=== PATIENT | female | born 1940 | race Caucasian/White ===

== ENCOUNTER → 2025-01-19 | Outpatient (REF) | payer MEDICARE, SELFPAY ==
[2025-01-19 09:15] LABS: Bacteria 0 SEEN /hpf (None Seen); Mucous, Urine 0 SEEN /hpf (<or=2+); Red Blood Cells-Urine 0 SEEN /hpf (0-5)
[2025-01-19 10:09] LABS: Phosphorus 5.2 mg/dL (2.7-4.5); Potassium 3.8 mmol/L (3.3-5.1)
[2025-01-19 10:11] LABS: Color, Urine Straw (Yellow); Glucose, Dipstick 100 mg/dl (Normal); Ketone-Dipstick Negative (Negative); Leukocyte Esterase-Dipstick 100 /ul (Negative); Nitrite-Dipstick Negative (Negative); Occult Blood-Urine Negative /ul (Negative); Protein-Dipstick 30 mg/dl (Negative); Urine Bilirubin Dipstick Negative (Negative); Urine Clarity Sl. Cloudy (Clear); Urine Urobilinogen Normal (Normal)
[2025-01-19 10:30] LABS: Squamous Epithelial Cells - UA 0-5 SEEN /hpf (5-10); White Blood Cells 0-5 SEEN /hpf (0-5)
== END ==
LOC: OLS.SANC 05:00
DX: D64.9 Anemia, unspecified (principal); N39.0 Urinary tract infection, site not specified; I12.9 Hypertensive chronic kidney disease with stage 1 through stage 4 chronic kidney disease, or unspecified chronic kidney disease; N18.5 Chronic kidney disease, stage 5; E87.5 Hyperkalemia; N17.9 Acute kidney failure, unspecified
CPT/HCPCS: 36415; 81001; 84100; 84132; 87086; 87088

== ENCOUNTER → 2025-02-02 | Outpatient (REF) | payer MEDICARE, SELFPAY ==
[2025-02-03 08:57] LABS: Bacteria 0 SEEN /hpf (None Seen); Mucous, Urine 0 SEEN /hpf (<or=2+); Red Blood Cells-Urine 0 SEEN /hpf (0-5)
[2025-02-04 16:39] LABS: Color, Urine Straw (Yellow); Glucose, Dipstick 250 mg/dl (Normal); Ketone-Dipstick Negative (Negative); Leukocyte Esterase-Dipstick Negative /ul (Negative); Nitrite-Dipstick Negative (Negative); Occult Blood-Urine Negative /ul (Negative); Protein-Dipstick 30 mg/dl (Negative); Urine Bilirubin Dipstick Negative (Negative); Urine Clarity Clear (Clear); Urine Urobilinogen Normal (Normal)
[2025-02-04 17:58] LABS: Squamous Epithelial Cells - UA 0-5 SEEN /hpf (5-10); White Blood Cells 0-5 SEEN /hpf (0-5)
== END ==
LOC: OLS.SANC 21:20
DX: E11.22 Type 2 diabetes mellitus with diabetic chronic kidney disease (principal); I12.9 Hypertensive chronic kidney disease with stage 1 through stage 4 chronic kidney disease, or unspecified chronic kidney disease; N18.5 Chronic kidney disease, stage 5; N17.9 Acute kidney failure, unspecified; R41.82 Altered mental status, unspecified
CPT/HCPCS: 81001; 87086; 87088

== ENCOUNTER → 2025-02-09 | Outpatient (REF) | payer MEDICARE, SELFPAY ==
[2025-02-09 09:40] LABS: Hemoglobin A1c 4.4 % (<=5.6)
== END ==
LOC: OLS.SANC 05:00
DX: E11.9 Type 2 diabetes mellitus without complications (principal)
CPT/HCPCS: 36415; 83036; 84443

== ENCOUNTER → 2025-02-14 | Outpatient (REF) | payer MEDICARE, SELFPAY ==
[2025-02-14 09:25] LABS: Hematocrit 31.8 % (37-47); Mean Corp Hgb Conc 34.6 g/dL (32-36); Mean Corpuscular Hgb 32.4 pg (27.0-32.0); Mean Corpuscular Volume 93.8 fL (81-99); Mean Platelet Vol. 9.5 fl (6.2-12.0); Platelet Count 256 K/mm3 (150-450); RBC Distribution Width CV 13.5 % (11.6-14.6); RBC Distribution Width SD 46.8 fl (35.1-43.9); Red Blood Count 3.39 M/mm3 (4.2-5.4); White Blood Count 6.1 K/mm3 (4.4-11.0)
[2025-02-14 10:02] LABS: Anion Gap 20 (5-15); BUN 76 mg/dL (4-19); BUN/Creat Ratio 10.3 RATIO (10-20); Calcium,Total 9.7 mg/dL (7.6-11.0); Carbon Dioxide 23.1 mmol/L (21.0-32.0); Chloride 94 mmol/L (98-108); EST Glomerular Filtration Rate 5 (>60); Glucose 94 mg/dL (70-99); Sodium Level 137 mmol/L (133-145)
== END ==
LOC: OLS.SANC 05:00
PROVIDERS: Visit Provider Internal Medicine
DX: D64.9 Anemia, unspecified (principal); E11.9 Type 2 diabetes mellitus without complications; I10 Essential (primary) hypertension
CPT/HCPCS: 36415; 80048; 85027

== ENCOUNTER → 2025-06-07 05:00 | Outpatient (REF) | payer MEDICARE, SELFPAY ==
[2025-06-07 09:16] LABS: Hematocrit 27.1 % (37-47); Hemoglobin 9.1 g/dL (12.0-15.0); Mean Corp Hgb Conc 33.6 g/dL (32-36); Mean Corpuscular Volume 98.9 fL (81-99); Mean Platelet Vol. 9.3 fl (6.2-12.0); Platelet Count 195 K/mm3 (150-450); RBC Distribution Width CV 12.5 % (11.6-14.6); RBC Distribution Width SD 44.7 fl (35.1-43.9); Red Blood Count 2.74 M/mm3 (4.2-5.4); White Blood Count 4.7 K/mm3 (4.4-11.0)
[2025-06-07 09:56] LABS: Anion Gap 15 (5-15); BUN 61 mg/dL (4-19); BUN/Creat Ratio 9.9 RATIO (10-20); Calcium,Total 9.4 mg/dL (7.6-11.0); Carbon Dioxide 27.8 mmol/L (21.0-32.0); Chloride 95 mmol/L (98-108); Glucose 112 mg/dL (70-99); Potassium 4.5 mmol/L (3.3-5.1); Vitamin D,25 Hydroxy 52.5 ng/mL (30-100)
== END ==
LOC: OLS.SANC 05:00
DX: D64.9 Anemia, unspecified (principal)
CPT/HCPCS: 36415; 80048; 82306; 84439; 84443; 85027

== ENCOUNTER → 2025-08-24 | Outpatient (REF) | payer MEDICARE, SELFPAY ==
--- OUTSIDE RECORDS SUMMARY | 2025-08-24 04:41 | XMS RPT_ITS | CCD ---
Author Organization [facility] Care Team Providers Care Funeral Attendant Name Role Phone Gabby VILLAFANA, Mariela Attending Provider Unava ilable Katsaros OLS, Donovan Attending Provider Unavailab le Mukkamalla OLS, Mariela Attending Unavail able Mukkamalla OLS, Mariela Attending Unavail able Mukkamalla OLS, Mariela Attending Unavail able Mukkamalla OLS, Mariela Attending Unavail able Katsaros OLS, Donovan Attending Unavailable Problems Active Problems Problem Classification Problem Date Documented Da te Episodic/Chronic Chronic kidney disease (1 source) Chronic kidney disease, stage 5; Translations: [Chronic kidney disease, stage 5] Onset: 03-04-2025 Chronic Deficiency and other anemia (2 sources) Anemia, unspecified; Translations: [Anemia, unspecified] Onset: 03-04-2025 Episodic Diabetes mellitus without complication (1 source) Type 2 diabetes mellitus without complications; Translations: [Type 2 diabetes mellitus without complications] Onset: 03-11-2025 Chronic Essential hypertension (1 source) Essential (primary) hypertension; Translations: [Essential (primary) hypertension] Onset: 03-04-2025 Chronic Past or Other Problems Problem Classification Problem Date Documented Da te Episodic/Chronic Acute and unspecified renal failure (1 source) Acute kidney failure, unspecified; Translations: [Acute kidney failure, unspecified] Onset: 03-04-2025 Episodic Fluid and electrolyte disorders (1 source) Hyperkalemia; Translations: [Hyperkalemia] Onset: 02-14-2025 Episodic Residual codes; unclassified (1 source) Altered mental status, unspecified; Translations: [Altered mental status, unspecified] Onset: 03-04-2025 Episodic Urinary tract infections (1 source) Urinary tract infection, site not specified; Translations: [Urinary tract infection, site not specified] Onset: 02-14-2025 Episodic Results Test Name Value Interpretation Reference Range Facility CBC-Complete Blood Cnt No Di ffon 08-04-2025 HCT Normal 37-47 [facility] Comment on above: Order Comment: 214.1 Result Comment: [facility] Performed By: #### L 500.4050, L100.0500 #### [facility] [address] [place], [address] HGB Normal 12.0-15.0 [facility] Comment on above: Order Comment: 214.1 Result Comment: [facility] Performed By: #### L 500.4050, L100.0500 #### [facility] [address] [place], [address] MCH Normal 27.0-32.0 [facility] Comment on above: Order Comment: 214.1 Result Comment: [facility] Performed By: #### L 500.4050, L100.0500 #### [facility] [address] [place], [address] MCHC Normal 32-36 [facility] Comment on above: Order Comment: 214.1 Result Comment: [facility] Performed By: #### L 500.4050, L100.0500 #### [facility] [address] [place], [address] MCV Normal 81-99 [facility] Comment on above: Order Comment: 214.1 Result Comment: [facility] Performed By: #### L 500.4050, L100.0500 #### [facility] [address] [place], [address] PLT Normal 150-450 [facility] Comment on above: Order Comment: 214.1 Result Comment: [facility] Performed By: #### L 500.4050, L100.0500 #### [facility] [address] [place], [address] RBC Normal 4.2-5.4 [facility] Comment on above: Order Comment: 214.1 Result Comment: [facility] Performed By: #### L 500.4050, L100.0500 #### [facility] [address] [place], [address] RDW CV Normal 11.6-14.6 [facility] Comment on above: Order Comment: 214.1 Result Comment: [facility] Performed By: #### L 500.4050, L100.0500 #### [facility] [address] [place], [address] RDW SD Normal 35.1-43.9 [facility] Comment on above: Order Comment: 214.1 Result Comment: [facility] Performed By: #### L 500.4050, L100.0500 #### [facility] [address] [place], [address] WBC Normal 4.4-11.0 [facility] Comment on above: Order Comment: 214.1 Result Comment: [facility] Performed By: #### L 500.4050, L100.0500 #### [facility] [address] [place], [address] Comprehensive Metabolic Prof ilon 08-04-2025 ALB Normal 3.4-4.8 [facility] Comment on above: Order Comment: 214.1 Result Comment: [facility] Performed By: #### L 500.4050, L100.0500 #### [facility] [address] [place], [address] ALK PHOS Normal 35-104 [facility] Comment on above: Order Comment: 214.1 Result Comment: [facility] Performed By: #### L 500.4050, L100.0500 #### [facility] [address] [place], [address] ALT Normal <=34 [facility] Comment on above: Order Comment: 214.1 Result Comment: [facility] Performed By: #### L 500.4050, L100.0500 #### [facility] [address] [place], [address] AST Normal <=31 [facility] Comment on above: Order Comment: 214.1 Result Comment: [facility] Performed By: #### L 500.4050, L100.0500 #### [facility] [address] [place], [address] BUN Normal 4-19 [facility] Comment on above: Order Comment: 214.1 Result Comment: [facility] Performed By: #### L 500.4050, L100.0500 #### [facility] [address] [place], [address] BUN/CRE Normal 10-20 [facility] Comment on above: Order Comment: 214.1 Result Comment: [facility] Performed By: #### L 500.4050, L100.0500 #### [facility] [address] [place], [address] Calcium Normal 7.6-11.0 [facility] Comment on above: Order Comment: 214.1 Result Comment: [facility] Performed By: #### L 500.4050, L100.0500 #### [facility] [address] [place], [address] CL Normal 98-108 [facility] Comment on above: Order Comment: 214.1 Result Comment: [facility] Performed By: #### L 500.4050, L100.0500 #### [facility] [address] [place], [address] CO2 Normal 21.0-32.0 [facility] Comment on above: Order Comment: 214.1 Result Comment: [facility] Performed By: #### L 500.4050, L100.0500 #### [facility] [address] [place], [address] CREAT,SERUM Normal 0.70-1.20 [facility] Comment on above: Order Comment: 214.1 Result Comment: [facility] Performed By: #### L 500.4050, L100.0500 #### [facility] [address] [place], [address] eGFR Normal >60 [facility] Comment on above: Order Comment: 214.1 Result Comment: [facility] Performed By: #### L 500.4050, L100.0500 #### [facility] [address] [place], [address] GAP Normal 5-15 [facility] Comment on above: Order Comment: 214.1 Result Comment: [facility] Performed By: #### L 500.4050, L100.0500 #### [facility] [address] [place], [address] GLU Normal 70-99 [facility] Comment on above: Order Comment: 214.1 Result Comment: [facility] Performed By: #### L 500.4050, L100.0500 #### [facility] [address] [place], [address] Potassium Normal 3.3-5.1 [facility] Comment on above: Order Comment: 214.1 Result Comment: [facility] Performed By: #### L 500.4050, L100.0500 #### [facility] [address] [place], [address] T BILI Normal 0.00-1.30 [facility] Comment on above: Order Comment: 214.1 Result Comment: [facility] Performed By: #### L 500.4050, L100.0500 #### [facility] [address] [place], [address] T PROT Normal 5.9-8.4 [facility] Comment on above: Order Comment: 214.1 Result Comment: [facility] Performed By: #### L 500.4050, L100.0500 #### [facility] [address] [place], [address] Comprehensive Metabolic Profil Normal 133-145 [facility] Comment on above: Order Comment: 214.1 Result Comment: [facility] Performed By: #### L 500.4050, L100.0500 #### [facility] [address] [place], [address] Basic Metabolic Profile (BMP )on 06-07-2025 BUN/CRE 9.9 RATIO Low 10-20 [facility] Comment on above: Order Comment: 214.1 Performed By: #### L 400.0001, L501.2300, M100.2200, L501.5600 #### [facility] [address] [place], [address] Calcium [Mass/Vol] 9.4 mg/dL Normal 7.6-11.0 [facility] Comment on above: Order Comment: 214.1 Performed By: #### L 400.0001, L501.2300, M100.2200, L501.5600 #### [facility] [address] [place], [address] Chloride [Moles/Vol] 95 mmol/L Low 98-108 [facility] Comment on above: Order Comment: 214.1 Performed By: #### L 400.0001, L501.2300, M100.2200, L501.5600 #### [facility] [address] [place], [address] CO2 [Moles/Vol] 27.8 mmol/L Normal 21.0-32.0 [facility] Comment on above: Order Comment: 214.1 Performed By: #### L 400.0001, L501.2300, M100.2200, L501.5600 #### [facility] [address] [place], [address] Creatinine [Mass/Vol] 6.16 mg/dL High 0.70-1.20 [facility] Comment on above: Order Comment: 214.1 Performed By: #### L 400.0001, L501.2300, M100.2200, L501.5600 #### [facility] [address] [place], [address] GAP 15 Normal 5-15 [facility] Comment on above: Order Comment: 214.1 Performed By: #### L 400.0001, L501.2300, M100.2200, L501.5600 #### [facility] [address] [place], [address] GFR/1.73 sq M.predicted among non-blacks MDRD (S/P/Bld) [Vol rate/Area] 6 mL/min/{1.73_m2} Low >60 [facility] Comment on above: Order Comment: 214.1 Result Comment: mL/m in/1.73m2 CKD-EPI Creatinine Equation (2020) Performed By: #### L 400.0001, L501.2300, M100.2200, L501.5600 #### [facility] [address] [place], [address] Glucose [Mass/Vol] 112 mg/dL High 70-99 [facility] Comment on above: Order Comment: 214.1 Performed By: #### L 400.0001, L501.2300, M100.2200, L501.5600 #### [facility] [address] [place], [address] Potassium [Moles/Vol] 4.5 mmol/L Normal 3.3-5.1 [facility] Comment on above: Order Comment: 214.1 Performed By: #### L 400.0001, L501.2300, M100.2200, L501.5600 #### [facility] [address] [place], [address] Sodium [Moles/Vol] 138 mmol/L Normal 133-145 [facility] Comment on above: Order Comment: 214.1 Performed By: #### L 400.0001, L501.2300, M100.2200, L501.5600 #### [facility] [address] [place], [address] Urea nitrogen [Mass/Vol] 61 mg/dL High 4-19 [facility] Comment on above: Order Comment: 214.1 Performed By: #### L 400.0001, L501.2300, M100.2200, L501.5600 #### [facility] [address] [place], [address] CBC-Complete Blood Cnt No Di ffon 06-07-2025 Erythrocyte distribution width (RBC) [Ratio] 12.5 % Normal 11.6-14.6 [facility] Comment on above: Order Comment: 214.1 Performed By: #### L 400.0001, L501.2300, M100.2200, L501.5600 #### [facility] [address] [place], [address] Hematocrit (Bld) [Volume fraction] 27.1 % Low 37-47 [facility] Comment on above: Order Comment: 214.1 Performed By: #### L 400.0001, L501.2300, M100.2200, L501.5600 #### [facility] [address] [place], [address] Hemoglobin (Bld) [Mass/Vol] 9.1 g/dL Low 12.0-15.0 [facility] Comment on above: Order Comment: 214.1 Performed By: #### L 400.0001, L501.2300, M100.2200, L501.5600 #### [facility] [address] [place], [address] MCH (RBC) [Entitic mass] 33.2 pg High 27.0-32.0 [facility] Comment on above: Order Comment: 214.1 Performed By: #### L 400.0001, L501.2300, M100.2200, L501.5600 #### [facility] [address] [place], [address] MCHC (RBC) [Mass/Vol] 33.6 g/dL Normal 32-36 [facility] Comment on above: Order Comment: 214.1 Performed By: #### L 400.0001, L501.2300, M100.2200, L501.5600 #### [facility] [address] [place], [address] MCV (RBC) [Entitic vol] 98.9 fL Normal 81-99 [facility] Comment on above: Order Comment: 214.1 Performed By: #### L 400.0001, L501.2300, M100.2200, L501.5600 #### [facility] [address] [place], [address] Platelet mean volume (Bld) [Entitic vol] 9.3 fL Normal 6.2-12.0 [facility] Comment on above: Order Comment: 214.1 Performed By: #### L 400.0001, L501.2300, M100.2200, L501.5600 #### [facility] [address] [place], [address] Platelets (Bld) [#/Vol] 195 10*3/uL Normal 150-450 [facility] Comment on above: Order Comment: 214.1 Performed By: #### L 400.0001, L501.2300, M100.2200, L501.5600 #### [facility] [address] [place], [address] RBC (Bld) [#/Vol] 2.74 10*6/uL Low 4.2-5.4 [facility] Comment on above: Order Comment: 214.1 Performed By: #### L 400.0001, L501.2300, M100.2200, L501.5600 #### [facility] [address] [place], [address] RDW SD 44.7 fl High 35.1-43.9 [facility] Comment on above: Order Comment: 214.1 Performed By: #### L 400.0001, L501.2300, M100.2200, L501.5600 #### [facility] [address] [place], [address] WBC (Bld) [#/Vol] 4.7 10*3/uL Normal 4.4-11.0 [facility] Comment on above: Order Comment: 214.1 Performed By: #### L 400.0001, L501.2300, M100.2200, L501.5600 #### [facility] [address] [place], [address] T4 Free Directon 06-07-2025 T4 FREE DIRECT 0.80 ng/dL Normal 0.76-1.46 [facility] Comment on above: Order Comment: 214.1 Performed By: #### L 400.0001, L501.2300, M100.2200, L501.5600 #### [facility] [address] [place], [address] Thyroid Stim Hormone (TSH)on 06-07-2025 TSH 2.560 uIU/mL Normal 0.300-4.200 [facility] Comment on above: Order Comment: 214.1 Performed By: #### L 400.0001, L501.2300, M100.2200, L501.5600 #### [facility] [address] [place], [address] Vitamin D,25 Hydroxyon 06-07 Vitamin D 25-OH 52.5 ng/mL Normal 30-100 [facility] Comment on above: Order Comment: 214.1 Result Comment: Steph min D Status Deficiency: <20 ng/mL (50nmol/L) Insufficiency: 20-30 ng/mL (50-75 nmol/L) Sufficiency: 30-100 ng/mL (75-250 nmol/L) Toxicity: >100 ng/mL (>250 nmol/L) Performed By: #### L 400.0001, L501.2300, M100.2200, L501.5600 #### [facility] [address] [place], [address] Anion gap in Serum or Plasma Ordered By: Donovan Mckeon on 02-14-2025 Anion gap [Moles/Vol] 20 mmol/L High 5- [facility] BUN/creatinine ratioOrdered By: Donovan Mckeon on 02-14-2025 Urea nitrogen/Creatinine [Mass ratio] 10.3 mg/mg 08-08 [facility] Basic Metabolic Profile (BMP )on 02-14-2025 BUN/CRE 10.3 RATIO Normal 08-08 [facility] Comment on above: Order Comment: Performed By: #### L 500.2500, L100.0500 #### [facility] [address] [place], [address] Calcium [Mass/Vol] 9.7 mg/dL Normal 7.6-11.0 [facility] Comment on above: Order Comment: Performed By: #### L 500.2500, L100.0500 #### [facility] [address] [place], [address] Chloride [Moles/Vol] 94 mmol/L Low 98-108 [facility] Comment on above: Order Comment: - Performed By: #### L 500.2500, L100.0500 #### [facility] [address] [place], [address] CO2 [Moles/Vol] 23.1 mmol/L Normal 21.0-32.0 [facility] Comment on above: Order Comment: - Performed By: #### L 500.2500, L100.0500 #### [facility] [address] [place], [address] Creatinine [Mass/Vol] 7.40 mg/dL High 0.70-1.20 [facility] Comment on above: Order Comment: - Performed By: #### L 500.2500, L100.0500 #### [facility] [address] [place], [address] GAP 20 High 5-15 [facility] Comment on above: Order Comment: - Performed By: #### L 500.2500, L100.0500 #### [facility] [address] [place], [address] GFR/1.73 sq M.predicted among non-blacks MDRD (S/P/Bld) [Vol rate/Area] 5 mL/min/{1.73_m2} Low >60 [facility] Comment on above: Order Comment: Result Comment: mL/m in/1.73m2 CKD-EPI Creatinine Equation (2020) Performed By: #### L 500.2500, L100.0500 #### [facility] [address] [place], [address] Glucose [Mass/Vol] 94 mg/dL Normal 70-99 [facility] Comment on above: Order Comment: - Performed By: #### L 500.2500, L100.0500 #### [facility] [address] [place], [address] Potassium [Moles/Vol] 4.0 mmol/L Normal 3.3-5.1 [facility] Comment on above: Order Comment: - Performed By: #### L 500.2500, L100.0500 #### [facility] [address] [place], [address] Sodium [Moles/Vol] 137 mmol/L Normal 133-145 [facility] Comment on above: Order Comment: 214-1 Performed By: #### L 500.2500, L100.0500 #### [facility] [address] [place], [address] Urea nitrogen [Mass/Vol] 76 mg/dL High 4-19 [facility] Comment on above: Order Comment: 214-1 Performed By: #### L 500.2500, L100.0500 #### [facility] [address] [place], [address] CBC-Complete Blood Cnt No Di ffon 02-14-2025 Erythrocyte distribution width (RBC) [Ratio] 13.5 % Normal 11.6-14.6 [facility] Comment on above: Order Comment: 214-1 Performed By: #### L 500.2500, L100.0500 #### [facility] [address] [place], [address] Hematocrit (Bld) [Volume fraction] 31.8 % Low 37-47 [facility] Comment on above: Order Comment: 214-1 Performed By: #### L 500.2500, L100.0500 #### [facility] [address] [place], [address] Hemoglobin (Bld) [Mass/Vol] 11.0 g/dL Low 12.0-15.0 [facility] Comment on above: Order Comment: 214-1 Performed By: #### L 500.2500, L100.0500 #### [facility] [address] [place], [address] MCH (RBC) [Entitic mass] 32.4 pg High 27.0-32.0 [facility] Comment on above: Order Comment: 214-1 Performed By: #### L 500.2500, L100.0500 #### [facility] [address] [place], [address] MCHC (RBC) [Mass/Vol] 34.6 g/dL Normal 32-36 [facility] Comment on above: Order Comment: 214-1 Performed By: #### L 500.2500, L100.0500 #### [facility] [address] [place], [address] MCV (RBC) [Entitic vol] 93.8 fL Normal 81-99 [facility] Comment on above: Order Comment: 214-1 Performed By: #### L 500.2500, L100.0500 #### [facility] [address] [place], [address] Platelet mean volume (Bld) [Entitic vol] 9.5 fL Normal 6.2-12.0 [facility] Comment on above: Order Comment: 214-1 Performed By: #### L 500.2500, L100.0500 #### [facility] [address] [place], [address] Platelets (Bld) [#/Vol] 256 10*3/uL Normal 150-450 [facility] Comment on above: Order Comment: 214-1 Performed By: #### L 500.2500, L100.0500 #### [facility] [address] [place], [address] RBC (Bld) [#/Vol] 3.39 10*6/uL Low 4.2-5.4 [facility] Comment on above: Order Comment: 214-1 Performed By: #### L 500.2500, L100.0500 #### [facility] [address] [place], [address] RDW SD 46.8 fl High 35.1-43.9 [facility] Comment on above: Order Comment: 214-1 Performed By: #### L 500.2500, L100.0500 #### [facility] [address] [place], [address] WBC (Bld) [#/Vol] 6.1 10*3/uL Normal 4.4-11.0 [facility] Comment on above: Order Comment: 214-1 Performed By: #### L 500.2500, L100.0500 #### [facility] [place], [address] Carbon dioxide, total [Moles /volume] in Central venous bloodOrdered By: Donovan Mckeon on 02-14-2025 CO2 [Moles/Vol] 23.1 mmol/L 21.0-32.0 [facility] Chloride assayOrdered By: Ashok Maria on 02-14-2025 Chloride [Moles/Vol] 94 mmol/L Low 98-108 [facility] Erythrocyte distribution wid th (RBC) [Ratio]Ordered By: Donovan Mckeon on 02-14-2025 Erythrocyte distribution width (RBC) [Entitic vol] 46.8 fL High 35.1-43.9 [facility] Erythrocyte distribution wid th ratioOrdered By: Donovan Mckeon on 02-14-2025 Erythrocyte distribution width (RBC) [Ratio] 13.5 % 11.6-14.6 [facility] Erythrocyte distribution wid th standard deviationOrdered By: Donovan Mckeon on 02-14-2025 Erythrocyte distribution width (RBC) [Ratio] 46.8 fl High 35.1-43.9 [facility] GFR/1.73 sq M.predicted monica g non-blacks MDRD (S/P/Bld) [Vol rate/Area]Ordered By: Donovan Mckeon on 02-14-2025 Estimated GFR (MDRD) Non-Af Amer 5 Low >60 [facility] Comment on above: mL/min/1.73m2 CKD-EP I Creatinine Equation (2020) Glomerular filtration rate ( GFR) estimation/1.73 sq m using serum, plasma, or whole bOrdered By: Donovan Mckeon on 02-14-2025 GFR/1.73 sq M.predicted among non-blacks MDRD (S/P/Bld) [Vol rate/Area] 5 mL/min/{1.73_m2} Low >60 [facility] Comment on above: mL/min/1.73m2 CKD-EP I Creatinine Equation (2020) Hematocrit Auto (Bld) [Volum e fraction]Ordered By: Donovan Mckeon on 02-14-2025 Hematocrit (Bld) [Volume fraction] 31.8 % Low 37-47 [facility] Hemoglobin measurementOrdere d By: Donovan Mckeon on 02-14-2025 Hemoglobin (Bld) [Mass/Vol] 11.0 g/dL Low 12.0-15.0 [facility] MCV (mean corpuscular volume ) determinationOrdered By: Donovan Mckeon on 02-14-2025 MCV (RBC) [Entitic vol] 93.8 fL 81-99 [facility] Mean corpuscular hemoglobin (MCH) determinationOrdered By: Donovan Mckeon on 02-14-2025 MCH (RBC) [Entitic mass] 32.4 pg High 27.0-32.0 [facility] Mean corpuscular hemoglobin concentration (MCHC) determinationOrdered By: Donovan Mckeon on 02-14-2025 MCHC (RBC) [Mass/Vol] 34.6 g/dL 32-36 [facility] Mean platelet volume determi nationOrdered By: Donovan Mckeon on 02-14-2025 Platelet mean volume (Bld) [Entitic vol] 9.5 fL 6.2-12.0 [facility] Platelet countOrdered By: Ashok Maria on 02-14-2025 Platelets (Bld) [#/Vol] 256 10*3/uL 150-450 [facility] Potassium (Unsp spec) [Mass/ Vol]Ordered By: Donovan Mckeon on 02-14-2025 Potassium [Moles/Vol] 4.0 mmol/L 3.3-5.1 [facility] Potassium measurement (mass/ volume)Ordered By: Donovan Mckeon on 02-14-2025 Potassium (Unsp spec) [Mass/Vol] 4.0 mmol/L 3.3-5.1 [facility] RBC Auto (Bld) [#/Vol]Ordere d By: Donovan Mckeon on 02-14-2025 RBC (Bld) [#/Vol] 3.39 10*6/uL Low 4.2-5.4 [facility] Serum creatinine measurement (mass/volume)Ordered By: Donovan Mckeon on 02-14-2025 Creatinine [Mass/Vol] 7.40 mg/dL High 0.70-1.20 [facility] Serum glucose measurement (m ass/volume)Ordered By: Donovan Mckeon on 02-14-2025 Glucose [Mass/Vol] 94 mg/dL 70-99 [facility] Serum or plasma calcium nelson urement (mass/volume)Ordered By: Donovan Mckeon on 02-14-2025 Calcium [Mass/Vol] 9.7 mg/dL 7.6-11.0 [facility] Serum or plasma urea nitroge n measurement (mass/volume)Ordered By: Donovan Mckeon on 02-14-2025 Urea nitrogen [Mass/Vol] 76 mg/dL High 4-19 [facility] Sodium levelOrdered By: Gilles Mckeon on 02-14-2025 Sodium [Moles/Vol] 137 mmol/L 133-145 [facility] White blood cell (WBC) count Ordered By: Donovan Mckeon on 02-14-2025 WBC (Bld) [#/Vol] 6.1 10*3/uL 4.4-11.0 [facility] Hemoglobin A1con 02-09-2025 HbA1c (Bld) [Mass fraction] 4.4 % Normal <=5.6 [facility] Comment on above: Order Comment: 214.1 Result Comment: Norm al < 5.7 % Prediabetic 5.7 - 6.4 % Diabetic >or= 6.5 % Please note range changes. Performed By: #### L 400.0001, L501.2300, M100.2200, L501.5600 #### [facility] [address] [place], [place] [address], [address] Hemoglobin A1c percentageOrd ered By: Mariela Pierre on 02-09-2025 HbA1c (Bld) [Mass fraction] 4.4 % <5.7 [facility] Comment on above: Normal < 5.7 % Predi abetic 5.7 - 6.4 % Diabetic >or= 6.5 % Please note range changes. TSH DL <= 0.005 mIU/L QnOrde red By: Mariela Pierre on 02-09-2025 Thyroid Stimulating Hormone (TSH) 2.710 uIU/mL 0.300-4.200 [facility] TSH Qn 2.710 uIU/mL 0.300-4.200 [facility] Thyroid Stim Hormone (TSH)on 02-09-2025 TSH 2.710 uIU/mL Normal 0.300-4.200 [facility] Comment on above: Order Comment: 214.1 Performed By: #### L 400.0001, L501.2300, M100.2200, L501.5600 #### [facility] [address] [place], [address] Urine Cultureon 02-05-2025 URC Mixed Gram Pos Gram Neg Org [place] Count 80,000-100,000 [facility] Mixed contaminants. Submit a new specimen if indicated. Normal [facility] Comment on above: Performed By: #### M 100.2200, L400.0001 #### [facility] [address] [place], [address] Urinalysis, Completeon 02-04 EPI,SQUAMOUS 0-5 SEEN Normal 5-10 [facility] Comment on above: Order Comment: CLEAN CATCH Performed By: #### M 100.2200, L400.0001 #### [facility] [address] [place], [address] WBC 0-5 SEEN Normal 0-5 [facility] Comment on above: Order Comment: CLEAN CATCH Performed By: #### M 100.2200, L400.0001 #### [facility] [address] [place], [address] Urinalysis, Completeon 02-03 BACTERIA 0 SEEN Normal None Seen [facility] Comment on above: Order Comment: CLEAN CATCH Performed By: #### M 100.2200, L400.0001 #### [facility] [address] [place], [address] Mucus Ql (Urine sed) 0 SEEN Normal [facility] Comment on above: Order Comment: CLEAN CATCH Performed By: #### M 100.2200, L400.0001 #### [facility] [address] [place], [place], [address] RBC 0 SEEN Normal 0-5 [facility] Comment on above: Order Comment: CLEAN CATCH Performed By: #### M 100.2200, L400.0001 #### [facility] [address] [place], [address] Bilirubin Test strip Ql (U)O rdered By: Mariela Pierre on 02-02-2025 Bilirubin Ql (U) Negative Negative [facility] Epithelial cells.squamous LM Ql (Urine sed)Ordered By: Mariela Pierre on 02-02-2025 Epithelial cells.squamous LM.HPF (Urine sed) [#/Area] 0 /[HPF] 5-10 [facility] Glucose Ql (U)Ordered By: Jadon Pierre on 02-02-2025 Glucose (U) [Mass/Vol] 250 mg/dL High Normal [facility] Ketones Test strip Ql (U)Ord ered By: Mariela Pierre on 02-02-2025 Ketones Ql (U) Negative Negative [facility] Microscopic analysis of urin e for red blood cells (RBC)Ordered By: Mariela Pierre on 02-02-2025 Microscopic analysis of urine for red blood cells (RBC) 0 SEEN /hpf 0-5 [facility] Urine RBC 0 SEEN /hpf 0-5 [facility] Mucus LM Ql (Urine sed)Order ed By: Mariela Pierre on 02-02-2025 Mucus Ql (Urine sed) 0 SEEN /hpf [facility] Nitrite Test strip Ql (U)Ord ered By: Mariela Pierre on 02-02-2025 Nitrite Ql (U) Negative Negative [facility] Protein Test strip Ql (U)Ord ered By: Mariela Pierre on 02-02-2025 Protein Ql (U) 30 mg/dl High Negative [facility] Squamous epithelial cells de tection in urine sediment by light microscopyOrdered By: Mariela Pierre on 02-02-2025 Epithelial cells.squamous LM Ql (Urine sed) 0-5 SEEN /hpf 5-10 [facility] Urine blood detectionOrdered By: Mariela Pierre on 02-02-2025 Urine Occult Blood Negative Negative [facility] Urine clarityOrdered By: Stacey Pierre on 02-02-2025 Clarity (U) Clear Clear [facility] Urine color determinationOrd ered By: Mairela Pierre on 02-02-2025 Color (U) Straw Yellow [facility] Urine cultureOrdered By: Stacey Pierre on 02-02-2025 Bacteria identified Cx Nom (U) Mixed Gram Pos & Gram Neg Org Abnormal [facility] Urine glucose detectionOrder ed By: Mariela Pierre on 02-02-2025 Glucose Ql (U) 250 mg/dl High Normal [facility] Urine leukocyte esterase det ection by dipstickOrdered By: Mariela Pierre on 02-02-2025 Leukocyte esterase Test strip Ql (U) Negative Negative [facility] Urine pHOrdered By: Mariela Pierre on 02-02-2025 pH (U) 8.0 [pH] 5.0 - 8.0 [facility] Urine sediment bacteria coun t by microscopy (number/high power field)Ordered By: Mariela Pierre on 02-02-2025 Bacteria LM.HPF (Urine sed) [#/Area] 0 /[HPF] None Seen [facility] Urine specific gravity measu rementOrdered By: Mariela Pierre on 02-02-2025 Specific gravity (U) [Rel density] 1.010 1.002-1.030 [facility] Urine urobilinogen measureme ntOrdered By: Mariela Pierre on 02-02-2025 Urobilinogen Ql (U) Normal mg/dl Normal [facility] Urobilinogen Ql (U)Ordered B y: Mariela Pierre on 02-02-2025 Urine Urobilinogen Normal mg/dl Normal [facility] White blood cell countOrdere d By: Mariela Pierre on 02-02-2025 Urine WBC 0-5 SEEN /hpf 0-5 [facility] White blood cell count 0-5 SEEN /hpf 0-5 [facility] Urine Cultureon 01-21-2025 URC Below infection level. Mixed Gram Positive Organisms [place] Count 1000-10,000 [facility] Mixed contaminants. Submit a new specimen if indicated. Normal [facility] Comment on above: Performed By: #### L 400.0001, L501.2300, M100.2200, L501.5600 #### [facility] [address] [place], [address] Phosphoruson 01-19-2025 Phosphate [Mass/Vol] 5.2 mg/dL High 2.7-4.5 [facility] Comment on above: Order Comment: 214.1 Performed By: #### L 400.0001, L501.2300, M100.2200, L501.5600 #### [facility] [address] [place], [address] Potassiumon 01-19-2025 Potassium [Moles/Vol] 3.8 mmol/L Normal 3.3-5.1 [facility] Comment on above: Order Comment: 214.1 Performed By: #### L 400.0001, L501.2300, M100.2200, L501.5600 #### [facility] [address] [place], [address] Potassium (Unsp spec) [Mass/ Vol]Ordered By: Mariela Pierre on 01-19-2025 Potassium [Moles/Vol] 3.8 mmol/L 3.3-5.1 [facility] Potassium measurement (mass/ volume)Ordered By: [facility] on 01-19-2025 Potassium (Unsp spec) [Mass/Vol] 3.8 mmol/L 3.3-5.1 [facility] Serum phosphorus measurement Ordered By: Mariela Pierre on 01-19-2025 Phosphorus Level 5.2 mg/dL High 2.7-4.5 [facility] Urinalysis, Completeon 01-19 EPI,SQUAMOUS 0-5 SEEN Normal 5-10 [facility] Comment on above: Order Comment: CLEAN CATCH Performed By: #### L 400.0001, L501.2300, M100.2200, L501.5600 #### [facility] [address] [place], [address] WBC 0-5 SEEN Normal 0-5 [facility] Comment on above: Order Comment: CLEAN CATCH Performed By: #### L 400.0001, L501.2300, M100.2200, L501.5600 #### [facility] [address] [place], [address] BACTERIA 0 SEEN Normal None Seen [facility] Comment on above: Order Comment: CLEAN CATCH Performed By: #### L 400.0001, L501.2300, M100.2200, L501.5600 #### [facility] [address] [place], [address] Mucus Ql (Urine sed) 0 SEEN Normal [facility] Comment on above: Order Comment: CLEAN CATCH Performed By: #### L 400.0001, L501.2300, M100.2200, L501.5600 #### [facility] [address] [place], [address] RBC 0 SEEN Normal 0-5 [facility] Comment on above: Order Comment: CLEAN CATCH Performed By: #### L 400.0001, L501.2300, M100.2200, L501.5600 #### [facility] [address] [place], [address] Bilirubin Test strip Ql (U)O rdered By: Mariela Pierre on 01-18-2025 Bilirubin Ql (U) Negative Negative [facility] Epithelial cells.squamous LM Ql (Urine sed)Ordered By: Mariela Pierre on 01-18-2025 Epithelial cells.squamous LM.HPF (Urine sed) [#/Area] 0 /[HPF] 5-10 [facility] Glucose Ql (U)Ordered By: Jadon Pierre on 01-18-2025 Glucose (U) [Mass/Vol] 100 mg/dL High Normal [facility] Ketones Test strip Ql (U)Ord ered By: Mariela Pierre on 01-18-2025 Ketones Ql (U) Negative Negative [facility] Microscopic analysis of urin e for red blood cells (RBC)Ordered By: Mariela Pierre on 01-18-2025 Microscopic analysis of urine for red blood cells (RBC) 0 SEEN /hpf 0-5 [facility] Urine RBC 0 SEEN /hpf 0-5 [facility] Mucus LM Ql (Urine sed)Order ed By: Mariela Pierre on 01-18-2025 Mucus Ql (Urine sed) 0 SEEN /hpf [facility] Nitrite Test strip Ql (U)Ord ered By: Mariela Pierre on 01-18-2025 Nitrite Ql (U) Negative Negative [facility] Protein Test strip Ql (U)Ord ered By: Mariela Pierre on 01-18-2025 Protein Ql (U) 30 mg/dl High Negative [facility] Squamous epithelial cells de tection in urine sediment by light microscopyOrdered By: Mariela Pierre on 01-18-2025 Epithelial cells.squamous LM Ql (Urine sed) 0-5 SEEN /hpf 5-10 [facility] Urine blood detectionOrdered By: Mariela Pierre on 01-18-2025 Urine Occult Blood Negative Negative [facility] Urine clarityOrdered By: Stacey Pierre on 01-18-2025 Clarity (U) Sl. Cloudy Clear [facility] Urine color determinationOrd ered By: Mariela Pierre on 01-18-2025 Color (U) Straw Yellow [facility] Urine cultureOrdered By: Stacey Pierre on 01-18-2025 Bacteria identified Cx Nom (U) Positive Abnormal [facility] Urine glucose detectionOrder ed By: Mariela Pierre on 01-18-2025 Glucose Ql (U) 100 mg/dl High Normal [facility] Urine leukocyte esterase det ection by dipstickOrdered By: Mariela Pierre on 01-18-2025 Leukocyte esterase Test strip Ql (U) 100 /ul High Negative [facility] Urine pHOrdered By: Mariela Pierre on 01-18-2025 pH (U) 8.0 [pH] 5.0 - 8.0 [facility] Urine sediment bacteria coun t by microscopy (number/high power field)Ordered By: Mariela Pierre on 01-18-2025 Bacteria LM.HPF (Urine sed) [#/Area] 0 /[HPF] None Seen [facility] Urine specific gravity measu rementOrdered By: Mariela Pierre on 01-18-2025 Specific gravity (U) [Rel density] 1.010 1.002-1.030 [facility] Urine urobilinogen measureme ntOrdered By: Mariela Pierre on 01-18-2025 Urobilinogen Ql (U) Normal mg/dl Normal [facility] Urobilinogen Ql (U)Ordered B y: Mariela Pierre on 01-18-2025 Urine Urobilinogen Normal mg/dl Normal [facility] White blood cell countOrdere d By: Mariela Pierre on 01-18-2025 Urine WBC 0-5 SEEN /hpf 0-5 [facility] White blood cell count 0-5 SEEN /hpf 0-5 [facility] Encounters Encounter Date Encounter Type Care Provider Facility Start: 06-07-2025 ambulatory Mariela SCHMITT Facility:[facility] Start: 02-14-2025 End: 02-14-2025 ambulatory Mariela Pierre MD [facility] Work Phone: Start: 02-14-2025 End: 02-14-2025 Departed Referred Donovan Mckeon Ami Bernabe [facility] Start: 02-14-2025 Registered Referred Donovan Bernabe [facility] Start: 02-14-2025 End: 02-14-2025 ambulatory Donovan SCHMITT Facility:[facility] Start: 02-09-2025 Registered Referred Mariela greco MD [facility] Start: 02-09-2025 End: 02-09-2025 ambulatory Mariela SCHMITT Facility:[facility] Start: 02-02-2025 End: 02-02-2025 ambulatory Mariela Pierre MD [facility] Work Phone: Start: 02-02-2025 End: 02-02-2025 Departed Referred Mariela Pierre MD [facility] Start: 02-02-2025 Registered Referred Mariela greco MD [facility] Start: 02-02-2025 End: 02-02-2025 ambulatory Mariela SCHMITT Facility:[facility] Start: 01-19-2025 End: 01-19-2025 ambulatory Mariela Pierre MD [facility] Work Phone: Start: 01-19-2025 End: 01-19-2025 Departed Referred Mariela Pierre MD [facility] Start: 01-19-2025 End: 01-19-2025 ambulatory Mariela SCHMITT Facility:[facility] Procedures Date Procedure Procedure Detail Performing Clinician Start: 02-02-2025 Urnls dip stick/tabl et reagent auto microscopy Mariela Pierre MD Start: 02-02-2025 Urine culture Mariela Pierre MD Start: 01-19-2025 Serum inorganic phos phate measurement Mariela Pierre MD Start: 01-18-2025 Urine culture Mariela Pierre MD Start: 01-18-2025 Urnls dip stick/tabl et reagent auto microscopy Mariela Pierre MD Payers Date Payer Category Payer Medicare [id number] 2025 Self-pay Unknown [id number] [id number] Unknown [id number] Unknown [id number] [id number] [id number] Unknown [id number] [id number] Unknown [id number] [id number] [id number] Social History Date Type Detail Facility Tobacco smoking stat [facility] Unknown if ever smoked [facility] Work Phone: Start: 02-14-2025 Sex Female (finding) [facility] Start: 1940 Sex Assigned At Female [facility] Evaluation note Note Date & Type Note Facility Evaluation note No assessment information availa ble [facility] Work Phone: Reason for referral (narrative) Note Date & Type Note Facility Reason for referral (narrative) No reason for referral information available [facility] Work Phone: Chief Complaint and Reason for Visit Chief Complaint Admit Date ASSISTED LAB WORK January 19, 2025 5: 00am Chief Complaint Admit Date ASSISTED LAB WORK January 19, 2025 5: 00am ASSISTED LAB WORK February 02, 2025 9 :20pm LABWORK February 14, 2025 5:0 0am Summary Purpose Family History No Family History Records Found Advance Directives No Advanced Directives Records Found Additional Source Comments Care Teams (unrecognized sec tion and content) Team Status: Inactive Member Role Status Dates Mariela SCHMITT MD Attending Provider Active Start: January 19, 2025 End: January 19, 2025 Team Status: Active Member Role Status Dates Mariela SCHMITT MD Attending Provider Active Start: February 02, 2025 Team Status: Active Member Role Status Dates Mariela SCHMITT MD Attending Provider Active Start: February 09, 2025 Team Status: Active Member Role Status Dates Donovan SCHMITT Attending Provider Active Sta rt: February 14, 2025 Team Status: Inactive Member Role Status Dates Mariela SCHMITT MD Attending Provider Active Start: February 02, 2025 End: February 02, 2025 Team Status: Inactive Member Role Status Dates Donovan Mckeon KESHIA Attending Provider Active Sta rt: February 14, 2025 End: February 14, 2025 Goals (unrecognized section and content) Goals may be documented in a n alternate sectionGoals may be documented in an alternate sectionGoals may be documented in an alternate section INFORMATION SOURCE (unrecogn ized section and content) DATE CREATED AUTHOR 08/05/2025 [facility] FOR RECORDS PERTAINING TO PATIENTS WHO ARE OR HAVE BEEN ENROLLED IN A CHEMICAL DEPENDENCY/SUBSTANCEABUSE PROGRAM, SOME INFORMATION MAY BE OMITTED. This clinical summary was aggregated from multiple sources. Caution should be exercised in using it in the provision of clinical care. This summary normalizes information from multiple sources, and as a consequence, information in this document may materially change the coding, format and clinical context of patient data. In addition, data may be omitted in some cases. CLINICAL DECISIONS SHOULD BE BASED ON THE PRIMARY CLINICAL RECORDS. [facility] [employer] provides no warranty or guarantee of the accuracy or completeness of information in this document.
[2025-08-24 08:50] LABS: AST(SGOT) 24 U/L (<=31); Alanine Aminotransfer ALT/SGPT 10 U/L (<=34); Albumin, Serum 3.0 g/dL (3.4-4.8); Alkaline Phosphatase 101 U/L (35-104); Bilirubin, Direct < 0.08 mg/dL (0.00-0.30); Globulin 2.3 g/dL (2.2-4.2)
== END ==
LOC: OLS.SANC 05:00
PROVIDERS: Visit Provider Internal Medicine
DX: N18.5 Chronic kidney disease, stage 5 (principal)
CPT/HCPCS: 36415; 80076